=== PATIENT | male | born 1950 | race Caucasian/White ===

== ENCOUNTER → 2022-05-15 12:36 | Outpatient (CLI) | payer OTHER, MEDICARE, SELFPAY ==
--- NOTE | 2022-05-15 | DI.MRI.S_ITS ---
PROCEDURE: MR LUMBAR SPINE WO CON INDICATIONS: SPINAL STENOSIS OF LUMBAR REGION TECHNIQUE: Noncontrast sagittal T1 spin echo and T2 fast echo, sagittal STIR, and T2 fast spin echo through the lumbar spine. In cases with scoliosis, additional coronal T2 fast spin echo may be performed. COMPARISON: CT, L-SPINE WITHOUT CONTRAST, 02/04/2018, 16:20. [facility], MR, L-SPINE WITHOUT CONTRAST, 07/09/2017, 17:20. FINDINGS: Image quality: Excellent. Alignment and Curvature: Posterior fusion is present from L4 through S1. There is 1-2 mm retrolisthesis of L3 on L4 and 1-2 mm anterolisthesis of on S1. Bone Marrow: Marrow is of normal overall signal. Mild reactive endplate changes are present L3-4, L4-5. No acute vertebral body compression fractures. Spinal Cord: Conus medullaris terminates at the L1-2 level. Visualized cord demonstrates normal signal and size. Paraspinous Soft Tissues: No paravertebral masses. Mild to moderate desiccation is present throughout the lumbar spine most severe at L4-5, L5-S1. T11-T12: Mild disc bulge with minimal canal narrowing. Moderate left foraminal narrowing. T12-L1: No disc bulge, spinal stenosis or foraminal narrowing. L1-L2: No disc bulge, spinal stenosis or foraminal narrowing. No interval change. Mild facet and ligamentum flavum hypertrophy. L2-L3: Mild disc bulge with moderate spinal stenosis, slightly progressive. [id number] bilateral foraminal narrowing with facet and ligamentum flavum hypertrophy, progressive compared to 2018. L3-L4: Mild disc bulge with severe spinal stenosis and canal compression, mildly progressive. Moderate left and [id number] right foraminal narrowing is relatively stable compared to 2018. Facet and ligamentum flavum hypertrophy are present. L4-L5: Minimal disc bulge without spinal stenosis, improved compared to prior exam. Qnny-aw-lnwmjoee bilateral foraminal narrowing, slightly progressive compared to 2018. L5-S1: Mild disc bulge without spinal stenosis, improved compared to prior exam. Severe bilateral foraminal narrowing, stable compared to 2018. IMPRESSION: Multilevel degenerative changes with areas of interval progression as noted above. Foraminal narrowing remains most severe at L5-S1 secondary to facet and ligamentum flavum arthropathy. Interval progression of spinal stenosis at L3-4. Dictated by: Radha Odell M.D. on 05/15/2022 at 19:40 Approved by: Radha Odell M.D. on 05/15/2022 at 19:46
== END ==
PROVIDERS: Referring Provider Orthopaedic Surgery Orthopaedic Surgery of the Spine; Visit Provider Orthopaedic Surgery Orthopaedic Surgery of the Spine
DX: M48.061 Spinal stenosis, lumbar region without neurogenic claudication (principal); M48.07 Spinal stenosis, lumbosacral region; M47.817 Spondylosis without myelopathy or radiculopathy, lumbosacral region
CPT/HCPCS: 72148

== ENCOUNTER → 2023-07-02 11:07 | Outpatient (CLI) | payer OTHER, MEDICARE, SELFPAY ==
--- NOTE | 2023-07-02 | DI.MRI.S_ITS ---
PROCEDURE: MR LUMBAR SPINE WO CON INDICATIONS: Spinal stenosis, lumbar region with neurogenic claudication TECHNIQUE: Noncontrast sagittal T1 spin echo and T2 fast echo, sagittal STIR, and T2 fast spin echo through the lumbar spine. In cases with scoliosis, additional coronal T2 fast spin echo may be performed. COMPARISON: [facility], MR, MR LUMBAR SPINE WO CON, 05/15/2022, 13:33. FINDINGS: Image quality: Excellent. Alignment and Curvature: Straightening of the normal lumbar lordosis. Posterior fusion from L4 through S1. Bone Marrow: Multilevel degenerative endplate changes, worse at L4-5. Marrow is otherwise of normal overall signal. No acute vertebral body compression fractures. Spinal Cord: Conus medullaris terminates at the L1-L2 level. Visualized cord demonstrates normal signal and size. Paraspinous Soft Tissues: No paravertebral masses. Left renal cyst is partially visualized. T11-T12: Severe disc height loss and desiccation with degenerative endplate changes. Small posterior disc bulge. Mild central canal stenosis. Moderate left foraminal stenosis. T12-L1: Disc desiccation and minimal posterior disc bulge. Facet arthropathy and thickened ligamentum flavum. No central canal or neural foraminal stenosis. L1-L2: Disc desiccation and small posterior disc bulge. Facet arthropathy and thickening of the ligamentum flavum. No central canal stenosis or neural foraminal stenosis. L2-L3: Disc desiccation and height loss. Diffuse disc bulge. Facet arthropathy and thickening ligamentum flavum. Epidural lipomatosis. Moderate spinal canal stenosis is mildly progressed. Mild bilateral neural foraminal stenosis is stable. L3-L4: Disc desiccation and diffuse disc bulge resulting in severe spinal canal stenosis, similar compared to prior. Facet arthropathy and thickening ligamentum flavum. Epidural lipomatosis. Moderate left and mild right neural foraminal stenosis is stable. L4-L5: Facet arthropathy. No central canal stenosis mild bilateral neural foraminal stenosis. Stable. L5-S1: In no central canal stenosis. Facet arthropathy. Stable moderate right neural foraminal stenosis. No left neural foraminal stenosis. IMPRESSION: Multilevel degenerative changes of the lumbar spine status post L4 through S1 posterior spinal fixation and discectomy. Stable severe central canal stenosis at L3-L4. Mild progression of moderate central canal stenosis at L2-L3. Multilevel neural foraminal stenosis as described above. Is similar compared to prior. Dictated by: Vincenzo Colon M.D. on 07/02/2023 at 12:43 Approved by: Vincenzo Colon M.D. on 07/02/2023 at 12:51
== END ==
PROVIDERS: Referring Provider Physical Medicine & Rehabilitation; Visit Provider Physical Medicine & Rehabilitation
DX: M48.062 Spinal stenosis, lumbar region with neurogenic claudication (principal); M47.816 Spondylosis without myelopathy or radiculopathy, lumbar region; M47.817 Spondylosis without myelopathy or radiculopathy, lumbosacral region
CPT/HCPCS: 72148

== ENCOUNTER → 2023-12-04 08:59 | Outpatient (CLI) | payer OTHER, MEDICARE, SELFPAY | LOC: PHYS 09:03 | PROVIDERS: Family Provider Physical Medicine & Rehabilitation; PCP Physical Medicine & Rehabilitation; Referring Provider Physical Medicine & Rehabilitation; Visit Provider Physical Medicine & Rehabilitation | DX: M54.17 Radiculopathy, lumbosacral region (principal); Z98.1 Arthrodesis status | CPT/HCPCS: 95886; 95910 ==

== ENCOUNTER 2024-02-24 13:20 | Outpatient (CLI) | payer OTHER, MEDICARE, SELFPAY ==
[2024-02-24] VITALS (8 sets, daily range): BP systolic 128–169; BP diastolic 59–87; PULSE 53–74; RESP 15–23; TEMP 36.6; O2SAT 92–96
--- NOTE | 2024-02-24 14:00 | DI.RAD.S_ITS ---
PROCEDURE: PAIN L INTERLAMINAR/CAUDAL INJ INDICATIONS: SPONDYLOSIS COMPARISON: MR, MR LUMBAR SPINE WO CON, 07/02/2023, 11:27. [facility], RF, LUMBAR TRANSFORAMINAL KRISS, 04/22/2023, 10:51. [facility], RF, LUMBAR SPINE INTERIAMINAR, 12/24/2022, 11:50. [facility], CR, XR LUMBAR SPINE 2 OR 3 VIEWS, 11/12/2022, 8:54. FINDINGS: Fluoroscopic spot filming was performed to verify placement of spinal needles at the L5-S1 level(s), as labeled on the films. Appropriate location(s) of the needle tip(s) was confirmed by injection of iodinated contrast. IMPRESSION: L5-S1 needle and contrast placement. Dictated by: Radha Odell M.D. on 02/24/2024 at 17:00 Approved by: Radha Odell M.D. on 02/24/2024 at 17:00
[2024-02-24] MEDS: MIDAZOLAM 2 MG/2 ML VIAL IV (14:46)
[2024-02-24] MEDS: iopamidoL 15 ML VIAL 3 ML INJ (14:52)
[2024-02-24] MEDS: DEXAMETHASONE 10 MG/ML VIAL INJ (14:52)
[2024-02-24] MEDS: BETAMETHASONE 30 MG/5 ML MDV 6 MG INJ (14:52)
[2024-02-24] MEDS: BUPIVACAINE 0.25% (PF) VIAL 2 ML INJ (14:52)
--- NOTE | 2024-02-24 15:06 | PM.PROC.IR.1 ---
Date/Time/Diagnoses Date of procedure: 02/24/24 Time of procedure: 15:07 Pre-procedure diagnosis: 1. HNP WITH RADICULAR FEATURES, 2. MULTILEVEL CENTRAL STENOSIS, Post-procedure diagnosis: same Procedure Notes Procedure: 1. FLUOROSCOPICALLY GUIDED CONTRAST CONTROLLED INTERLAMINAR EPIDURAL STEROID INJECTION - L5/S1 Indications: Morgan is referred for treatment of Bilateral Foraminal Stenosis L>R LE symptoms. Physician: Lakhwinder Hale Total Fluoroscopy time (seconds): 9 Total sedation minutes: 10 Complications: none Procedure in detail & Post-procedure care: FINDINGS Multilevel Central Spinal Stenosis with Nerve Root Compression DESCRIPTION OF PROCEDURE Fluoroscopically guided, contrast-controlled L5/S1 translaminar epidural steroid injection. Following review of allergy and review of potential side effects and complications, including, but not necessarily limited to, infection, allergic reaction, local tissue breakdown, temporary as well as permanent nerve injury, paralysis, stroke and possible , the patient indicated that the patient understood and agreed to proceed. An informed consent document was signed by the patient, witnessed by a nurse, and placed in the patient's chart. Additionally, other treatment options including modalities, medications, and physical therapy were reviewed with the patient. After review of previous anaesthesic history and IV conscious sedation the patient was deemed safe to proceed with today?s procedure with IV conscious sedation as ASA class II designation. Safety time-out was performed to confirm patient ID, procedure to be performed and site of procedure. IV sedation was accomplished with a combination of 2mg of Versed administered by the RN after DO order, titrated to patient comfort during the course of the procedure while the patient remained responsive to all verbal commands. In the prone position, following sterile prep and drape of the lumbar region, the L5/S1 translaminar space was identified fluoroscopically. The skin was anesthetized via a 25-gauge, 1.5-inch needle with 1% lidocaine solution. At this point, a 22-gauge short bevel spinal needle was atraumatically introduced and advanced under fluoroscopic guidance into the region of the L5/S1 translaminar space. Depth was confirmed on lateral view. Radiological data, including multiple fluoroscopic views of the lumbar spine, reveal a spinal needle at the L5/S1 translaminar space. Lateral views then show placement of the needle in the epidural space. Subsequent views show contrast material flowing superiorly and inferiorly in the epidural space. No vascular or intrathecal uptake is observed. At this point, using loss of resistance technique with saline and air, the epidural space was entered. This was confirmed following negative aspiration with injection of approximately 1.5cc of Isovue 200, showing excellent epidural flow without vascular or intrathecal uptake. At this point, 1 cc of 1% lidocaine solution combined with 2cc or 10mg of dexamethasone and 6mg of betamethasone was injected without incident. The patent tolerated the procedure without signs of symptoms of complications prior to transfer to the recovery area for further monitoring. The patient was then transferred to the recovery area where they were observed for an appropriate period of time after the injection. The patient reported a VAS score of 6 prior to the procedure and a post-procedure VAS of 0. POST OP INSTRUCTIONS The patient was provided a Pain Log to continue to record their response to the target-specific procedure prior to follow-up visit with their referring physician. Additionally, specific post-injection care instructions and a contact number to our office were provided if concerns arise regarding possible complications associated with the procedure are suspected.
== END 2024-02-24 15:20 | disposition home or self-care (01) ==
PROVIDERS: Family Provider Physical Medicine & Rehabilitation; Referring Provider Physical Medicine & Rehabilitation; Visit Provider Physical Medicine & Rehabilitation
DX: M51.17 Intervertebral disc disorders with radiculopathy, lumbosacral region (principal); M48.07 Spinal stenosis, lumbosacral region
CPT/HCPCS: 62323; 99152; J0702; J1100; J2250; J3490

== ENCOUNTER 2024-04-22 12:51 | Outpatient (CLI) | payer OTHER, MEDICARE, SELFPAY ==
[2024-04-22] VITALS (9 sets, daily range): BP systolic 130–170; BP diastolic 58–91; PULSE 50–62; RESP 16–21; TEMP 36.6; O2SAT 93–97
--- NOTE | 2024-04-22 13:30 | DI.RAD.S_ITS ---
PROCEDURE: PAIN L/S FACET INJ/BLK 1ST NYA INDICATIONS: Bilateral L2-L3 and L4 medial branch blocks LA COMPARISON: None. FINDINGS: Fluoroscopic spot filming was performed to verify placement of spinal needles at the L2, L3, L4 level(s), as labeled on the films. Appropriate location(s) of the needle tip(s) was confirmed by injection of iodinated contrast. IMPRESSION: L2-4 contrast and needle placement. Dictated by: Radha Odell M.D. on 04/22/2024 at 17:08 Approved by: Radha Odell M.D. on 04/22/2024 at 17:09
[2024-04-22] MEDS: MIDAZOLAM 2 MG/2 ML VIAL 1 MG IV (14:00)
[2024-04-22] MEDS: LIDOCAINE 1% 20 ML 5 ML INJ (14:07)
[2024-04-22] MEDS: iopamidoL 15 ML VIAL 3 ML INJ (14:08)
[2024-04-22] MEDS: BUPIVACAINE 0.5% (PF) 10 ML VIAL 5 ML INJ (14:08)
--- NOTE | 2024-04-22 14:18 | PM.PROC.IR.1 ---
Date/Time/Diagnoses Date of procedure: 04/22/24 Time of procedure: 14:18 Pre-procedure diagnosis: FACET ARTHROPATHY Post-procedure diagnosis: same Procedure Notes Procedure: 1. BILATERAL L2, L3, L4 DIAGNOSTIC MB BLOCKS Indications: Morgan is referred for treatment of Bilateral Axial LBP. Physician: Lakhwinder Hale Total Fluoroscopy time (seconds): 12 Total sedation minutes: 14 Complications: none Procedure in detail & Post-procedure care: DESCRIPTION OF PROCEDURE Fluoroscopically guided, contrast-controlled bilateral L2, L3, L4 medial branch blocks with 0.5cc of 0.5% Marcaine. Following review of allergy and review of potential side effects and complications, including, but not necessarily limited to, infection, allergic reaction, local tissue breakdown, nerve injury, paralysis, stroke and possible , the patient indicated that the patient understood and agreed to proceed. An informed consent document was signed by the patient, witnessed by a nurse, and placed in the patient's chart. After review of previous anaesthesic history and IV conscious sedation the patient was deemed safe to proceed with today's procedure with IV conscious sedation as ASA class II designation. Safety time-out was performed to confirm patient ID, procedure to be performed and site of procedure. IV sedation was accomplished with a combination of 2mg of Versed was administered by the RN after DO order, titrated to patient comfort during the course of the procedure while the patient remained responsive to all verbal commands In the prone position, following sterile prep and drape of the lumbar region, the right L2, L3, L4 anatomical location of the medial branch of the dorsal ramus was identified fluoroscopically. Subsequently an anesthetic skin wheal using 1% lidocaine solution was initiated at each of the anatomical spots. Subsequently then a 22-gauge 3.5-inch spinal needle was atraumatically introduced and advanced under fluoroscopic guidance at each of the corresponding sites at the right L2, L3, L4 MB. After negative aspiration, 0.2cc of Isovue 200 was injected, confirming placement without vascular or intrathecal uptake. Subsequently then 0.5cc of 0.5% Marcaine solution was injected at each of the corresponding sites at the right L2, L3, L4 medial branch locations. The identical procedure was replicated on the left. The patient tolerated the procedure well without signs or symptoms of complications. The patient tolerated the procedure well without signs or symptoms of complications prior to transfer to the recovery area continued monitoring without incident. Post-procedure, the patient was monitored initiating provocative activities to measure the amount of relief from block of the facetogenic pain. The patient reported a VAS of 9 prior to the procedure and a post-procedure VAS of 2. It has been a pleasure to assist in the diagnostic and therapeutic care of your patient. POST OP INSTRUCTIONS The patient was provided with a Pain Log to complete over the next several hours and subsequent days prior to the patient's follow up with the ordering physician. If the patient has director shopper marketing relief to the solution applied, then they may be a candidate for medial branch rhizotomy. The patient is aware, was provided, once again, with a Pain Log and will follow up with the referring physician for review and clinical correlation
== END 2024-04-22 14:55 | disposition home or self-care (01) ==
PROVIDERS: Family Provider Physical Medicine & Rehabilitation; Referring Provider Physical Medicine & Rehabilitation; Visit Provider Physical Medicine & Rehabilitation
DX: M47.816 Spondylosis without myelopathy or radiculopathy, lumbar region (principal)
CPT/HCPCS: 64493; 64494; 99152; J2250

== ENCOUNTER 2024-09-07 14:46 | Outpatient (CLI) | payer OTHER, MEDICARE, SELFPAY ==
[2024-09-07] VITALS (8 sets, daily range): BP systolic 128–166; BP diastolic 59–77; PULSE 50–62; RESP 12–20; TEMP 36.1; O2SAT 94–97
--- NOTE | 2024-09-07 15:30 | DI.RAD.S_ITS ---
PROCEDURE: PAIN SI JOINT INJECTION NYA INDICATIONS: Bilateral sacral joint injection COMPARISON: None. FINDINGS: Fluoroscopic spot filming was performed to verify placement of spinal needles at the right and left sacroiliac joints, as labeled on the films. Appropriate location(s) of the needle tip(s) was confirmed by injection of iodinated contrast. IMPRESSION: Intraoperative fluoroscopy for bilateral sacroiliac joint injection. Dictated by: Estephania Figueroa M.D. on 09/09/2024 at 9:04 Approved by: Estephania Figueroa M.D. on 09/09/2024 at 9:05
[2024-09-07] MEDS: MIDAZOLAM 2 MG/2 ML VIAL IV (16:07)
[2024-09-07] MEDS: BUPIVACAINE 0.5% (PF) 10 ML VIAL 5 ML INJ (16:12)
[2024-09-07] MEDS: BETAMETHASONE 30 MG/5 ML MDV 12 MG INJ (16:13)
[2024-09-07] MEDS: iopamidoL 15 ML VIAL 3 ML INJ (16:13)
--- NOTE | 2024-09-07 16:26 | PM.PROC.IR.1 ---
Date/Time/Diagnoses Date of procedure: 09/07/24 Time of procedure: 16:26 Pre-procedure diagnosis: Sacroiliac joint pain/DJD Post-procedure diagnosis: same Procedure Notes Procedure: Fluoroscopic guided contrast controlled bilateral sacroiliac joint injection Indications: Morgan is referred for treatment of bilateral sacroiliac joint DJD Physician: Lakhwinder Hale Total Fluoroscopy time (seconds): 16 Total sedation minutes: 14 Complications: none Procedure in detail & Post-procedure care: Description of procedure Fluoroscopic guided, contrast controlled bilateral sacroiliac joint injection Following review of allergies and review of potential side effects and complications, including, but not necessarily limited to, infection, allergic reaction, local tissue breakdown, temporary as well as permanent nerve injury, paralysis, stroke and possible , the patient indicated that they understood and agreed to proceed. An informed consent was signed by the patient, witnessed by a nurse, and placed in the patient's chart. Additionally, other treatment options including modalities, medications, and physical therapy were reviewed with the patient. After review of previous anaesthesic history and IV conscious sedation the patient was deemed safe to proceed with today?s procedure with IV conscious sedation as ASA class II designation. Safety time-out was performed to confirm patient ID, procedure to be performed and site of procedure. IV sedation was accomplished with a combination of 2mg Versed were administered by the RN after DO order, titrated to patient comfort during the course of the procedure while the patient remained responsive to all verbal commands In the prone position following sterile prep and drape of the pelvic region, the hyper lucency on in the inferior aspect of the sacroiliac joint was identified fluoroscopically the skin was anesthetized be a 25 gauge 1.5 inch needle with approximately 2cc of 1% lidocaine solution. At this point, a 22 gauge 3 in spinal needle was atraumatically introduced and advanced under fluoroscopic guidance into the inferior aspect of the right sacroiliac joint. Following negative aspiration, approximately 0.3cc of Isovue-300 was injected confirming intra-articular placement without vascular uptake. Radiographic data, including multiple fluoroscopic views of the pelvis, reveals a spinal needle in the sacroiliac joint hyper lucent zone. Subsequent view show flow contrast tear superiorly and inferiorly within the joint capsule without vascular intrathecal uptake. At this point a total of 1cc of 0.5% Marcaine was combined with 1cc of 6mg of betamethasone was injected without incident. Attention was then refocused the left sacroiliac joint where the procedure was replicated. The procedure tolerated the procedure well without signs or symptoms of complications prior to transfer to the recovery area continued monitoring without incident. The patient was then transferred to the recovery area with a bur observed for an appropriate time after the injection. The patient reverted a vas score of 7 prior to the procedure and post-procedure vas of 1. Postop instructions The patient was provided with a pain like to continue to record the patient's response to the target specific procedure prior to the patient's follow-up visit with the referring physician. Additionally, specific post injection care instructions and a contact number to our office were provided if concerns arise regarding the possible complications associated with procedure are suspected.
== END 2024-09-07 16:54 | disposition home or self-care (01) ==
LOC: RAD 14:49
PROVIDERS: Family Provider Physical Medicine & Rehabilitation; Referring Provider Physical Medicine & Rehabilitation; Visit Provider Physical Medicine & Rehabilitation
DX: M53.3 Sacrococcygeal disorders, not elsewhere classified (principal); M46.1 Sacroiliitis, not elsewhere classified
CPT/HCPCS: 27096; 99152; J0702; J2250

== ENCOUNTER → 2025-02-04 08:28 | Outpatient (CLI) | payer MEDICARE, BC, SELFPAY ==
--- NOTE | 2025-02-04 | DI.US.S_ITS ---
PROCEDURE: US ARTERIAL DUPLEX LE RT INDICATIONS: RIGHT HIP PAIN/CLAUDICATION TECHNIQUE: Color and pulse Doppler interrogation was performed of the right lower extremity arterial system, with image documentation. COMPARISON: None. FINDINGS: Common femoral artery: 119 cm/sec, with triphasic flow. Deep femoral artery: 112 cm/sec, with biphasic flow. Proximal superficial femoral artery: 101 cm/sec, with triphasic flow. Mid superficial femoral artery: 119 cm/sec, with triphasic flow. Distal superficial femoral artery: 407 cm/sec, with triphasic flow. Popliteal artery: 77 cm/sec, with triphasic flow. Posterior tibial artery: 114 cm/sec, with triphasic flow. Anterior tibial artery/dorsalis pedis: 39 cm/sec, with biphasic flow. Lockwood-scale imaging description: Severe distal SFA stenosis with marked velocity elevation and a collateral proximal to the stenosis. IMPRESSION: Focal severe distal SFA stenosis, hemodynamically significant. This can result in right calf claudication symptoms. Consider endovascular referral if the patient has a short distance lifestyle limiting calf claudication. Dictated by: Glen Hudson M.D. on 02/04/2025 at 16:56 Approved by: Glen Hudson M.D. on 02/04/2025 at 16:58
== END ==
PROVIDERS: Family Provider Physical Medicine & Rehabilitation; Referring Provider Physical Medicine & Rehabilitation; Visit Provider Physical Medicine & Rehabilitation
DX: I70.201 Unspecified atherosclerosis of native arteries of extremities, right leg (principal); M53.88 Other specified dorsopathies, sacral and sacrococcygeal region
CPT/HCPCS: 93926

== ENCOUNTER → 2025-02-08 09:21 | Outpatient (CLI) | payer MEDICARE, BC, SELFPAY ==
--- NOTE | 2025-02-08 09:22 | DI.CT.S_ITS ---
PROCEDURE: CT PEL WO CON INDICATIONS: SACRAL DYSFUNCTION S/P LUMBAR FUSION TECHNIQUE: Noncontrast 3 mm axial sections acquired through the bony pelvis, with coronal and sagittal reformatting. Additional oblique coronal reformat through the sacrum. For radiation dose reduction, the following was used: automated exposure control, adjustment of mA and/or kV according to patient size. COMPARISON: [facility], CR, XR LUMBAR SPINE 2 OR 3 VIEWS, 11/12/2022, 8:54. [facility], MR, MR LUMBAR SPINE WO CON, 07/02/2023, 11:27. FINDINGS: Image quality: Excellent. Bones: No acute osseous fracture or dislocation. Postsurgical changes are seen from prior posterior fixation at L4 through S1 with bilateral pedicle screws and interbody rods as well as disc spacers. Hardware components are in stable positions without signs of loosening. No hardware fracture is seen. Mild posterior subluxation at the sacrococcygeal junction is likely congenital or secondary to remote prior trauma. Wwsl-[id number] degenerative changes at the sacroiliac joints bilaterally. No suspicious osseous lesion. Mild degenerative changes in the hips with lateral acetabular spurring. Soft tissues: No presacral edema. The articular cartilages, ligaments, and tendons are not well evaluated multiple colonic diverticula. There is fat stranding surrounding a diverticulum at the sigmoid colon suspicious for acute diverticulitis. No fluid collection or pneumoperitoneum is seen. No signs of bowel obstruction. Aortic atherosclerotic calcifications are present. 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 IMPRESSION: 1. Colonic diverticulosis with findings suspicious for acute uncomplicated sigmoid diverticulitis. 2. Postsurgical changes at L4 through S1. No acute hardware complication or acute osseous abnormality is seen. 3. Poes-at-amuaaxze bilateral sacroiliac joint osteoarthrosis. 4. Small fat containing left inguinal hernia. Findings were communicated to Skye of the on-call provider's office by telephone on 02/08/2025 at 4:20 PM. Approved by: Ryan Prakash M.D. on 02/08/2025 at 16:22
== END ==
PROVIDERS: Family Provider Physical Medicine & Rehabilitation; Referring Provider Neurological Surgery; Visit Provider Neurological Surgery
DX: K57.30 Diverticulosis of large intestine without perforation or abscess without bleeding (principal); M19.09 Primary osteoarthritis, other specified site; M53.3 Sacrococcygeal disorders, not elsewhere classified; K46.9 Unspecified abdominal hernia without obstruction or gangrene; I70.0 Atherosclerosis of aorta; Z98.1 Arthrodesis status
CPT/HCPCS: 72192

== ENCOUNTER 2025-02-15 12:09 | Outpatient (CLI) | payer BC, MEDICARE, SELFPAY ==
[2025-02-15] VITALS (9 sets, daily range): BP systolic 122–148; BP diastolic 55–79; PULSE 49–67; RESP 11–19; TEMP 36.2; O2SAT 93–99
[2025-02-15] MEDS: MIDAZOLAM 2 MG/2 ML VIAL IV (13:48)
[2025-02-15] MEDS: iopamidoL 15 ML VIAL 3 ML INJ (13:57)
[2025-02-15] MEDS: BETAMETHASONE 30 MG/5 ML MDV 12 MG INJ (13:57)
[2025-02-15] MEDS: BETAMETHASONE 30 MG/5 ML MDV 6 MG INJ (13:59)
[2025-02-15] MEDS: BUPIVACAINE 0.5% (PF) 10 ML VIAL INJ (14:01)
--- NOTE | 2025-02-15 14:06 | PM.PROC.IR.1 ---
Date/Time/Diagnoses Date of procedure: 02/15/25 Time of procedure: 14:06 Pre-procedure diagnosis: Sacroiliac joint pain/DJD Post-procedure diagnosis: same Procedure Notes Procedure: Fluoroscopic guided contrast controlled bilateral sacroiliac joint injection Indications: Morgan is referred for treatment of bilateral sacroiliac joint DJD Physician: Lakhwinder Hale Total Fluoroscopy time (seconds): 11 Total sedation minutes: 16 Complications: none Procedure in detail & Post-procedure care: Description of procedure Fluoroscopic guided, contrast controlled bilateral sacroiliac joint injection Following review of allergies and review of potential side effects and complications, including, but not necessarily limited to, infection, allergic reaction, local tissue breakdown, temporary as well as permanent nerve injury, paralysis, stroke and possible , the patient indicated that they understood and agreed to proceed. An informed consent was signed by the patient, witnessed by a nurse, and placed in the patient's chart. Additionally, other treatment options including modalities, medications, and physical therapy were reviewed with the patient. After review of previous anaesthesic history and IV conscious sedation the patient was deemed safe to proceed with today?s procedure with IV conscious sedation as ASA class II designation. Safety time-out was performed to confirm patient ID, procedure to be performed and site of procedure. IV sedation was accomplished with a combination of 2mg Versed were administered by the RN after DO order, titrated to patient comfort during the course of the procedure while the patient remained responsive to all verbal commands In the prone position following sterile prep and drape of the pelvic region, the hyper lucency on in the inferior aspect of the sacroiliac joint was identified fluoroscopically the skin was anesthetized be a 25 gauge 1.5 inch needle with approximately 2cc of 1% lidocaine solution. At this point, a 22 gauge 3 in spinal needle was atraumatically introduced and advanced under fluoroscopic guidance into the inferior aspect of the right sacroiliac joint. Following negative aspiration, approximately 0.3cc of Isovue-300 was injected confirming intra-articular placement without vascular uptake. Radiographic data, including multiple fluoroscopic views of the pelvis, reveals a spinal needle in the sacroiliac joint hyper lucent zone. Subsequent view show flow contrast tear superiorly and inferiorly within the joint capsule without vascular intrathecal uptake. At this point a total of 1cc of 0.5% Marcaine was combined with 1cc of 6mg of betamethasone was injected without incident. Attention was then refocused the left sacroiliac joint where the procedure was replicated. The procedure tolerated the procedure well without signs or symptoms of complications prior to transfer to the recovery area continued monitoring without incident. The patient was then transferred to the recovery area with a bur observed for an appropriate time after the injection. The patient reverted a vas score of 7 prior to the procedure and post-procedure vas of 1. Postop instructions The patient was provided with a pain like to continue to record the patient's response to the target specific procedure prior to the patient's follow-up visit with the referring physician. Additionally, specific post injection care instructions and a contact number to our office were provided if concerns arise regarding the possible complications associated with procedure are suspected.
== END 2025-02-15 14:23 | disposition home or self-care (01) ==
LOC: RAD 12:13
PROVIDERS: Family Provider Physical Medicine & Rehabilitation; Referring Provider Physical Medicine & Rehabilitation; Visit Provider Physical Medicine & Rehabilitation
DX: M46.1 Sacroiliitis, not elsewhere classified (principal); M53.3 Sacrococcygeal disorders, not elsewhere classified
CPT/HCPCS: 27096; 99152; J0702; J2250

== ENCOUNTER → 2025-05-03 10:12 | Outpatient (CLI) | payer BC, MEDICARE, SELFPAY ==
--- NOTE | 2025-05-03 10:17 | DI.RAD.S_ITS ---
PROCEDURE: XR FOOT RT MIN 3V INDICATIONS: Pain in right foot TECHNIQUE: 3 views of the foot were acquired. COMPARISON: None. FINDINGS: Bones: Hammertoe deformities 1st through 5th digits noted. Joints: Severe 1st MTP and mild 2nd through 5th interphalangeal degeneration appreciated Soft tissues: A 2.2 cm ossification is seen in the dorsal soft tissues overlying the 1st metatarsal. IMPRESSION: Chronic findings as described Dictated by: Giovanni Min M.D. on 05/04/2025 at 12:19 Approved by: Giovanni Min M.D. on 05/04/2025 at 12:20
== END ==
LOC: RAD 10:16
PROVIDERS: Family Provider Physical Medicine & Rehabilitation; Referring Provider Podiatrist Foot & Ankle Surgery; Visit Provider Podiatrist Foot & Ankle Surgery
DX: M19.071 Primary osteoarthritis, right ankle and foot (principal); M20.41 Other hammer toe(s) (acquired), right foot; M79.671 Pain in right foot
CPT/HCPCS: 73630

== ENCOUNTER 2025-06-09 09:34 | Outpatient (CLI) | payer BC, MEDICARE, SELFPAY ==
[2025-06-09] VITALS (8 sets, daily range): BP systolic 127–168; BP diastolic 57–78; PULSE 52–74; RESP 11–22; TEMP 36.2; O2SAT 92–99
[2025-06-09] MEDS: MIDAZOLAM 2 MG/2 ML VIAL IV (11:04)
[2025-06-09] MEDS: BETAMETHASONE 30 MG/5 ML MDV 12 MG INJ (11:08)
[2025-06-09] MEDS: BUPIVACAINE 0.5% (PF) 10 ML VIAL 5 ML INJ (11:09)
[2025-06-09] MEDS: BETAMETHASONE 30 MG/5 ML MDV 6 MG INJ (11:10)
--- NOTE | 2025-06-09 11:24 | PM.PROC.IR.1 ---
Date/Time/Diagnoses Date of procedure: 06/09/25 Time of procedure: 11:24 Pre-procedure diagnosis: Sacroiliac joint pain/DJD Post-procedure diagnosis: same Procedure Notes Procedure: Fluoroscopic guided contrast controlled bilateral sacroiliac joint injection Indications: Morgan is referred for treatment of bilateral sacroiliac joint DJD Physician: Lakhwinder Hale Total Fluoroscopy time (seconds): 13 Total sedation minutes: 15 Complications: none Procedure in detail & Post-procedure care: Description of procedure Fluoroscopic guided, contrast controlled bilateral sacroiliac joint injection Following review of allergies and review of potential side effects and complications, including, but not necessarily limited to, infection, allergic reaction, local tissue breakdown, temporary as well as permanent nerve injury, paralysis, stroke and possible , the patient indicated that they understood and agreed to proceed. An informed consent was signed by the patient, witnessed by a nurse, and placed in the patient's chart. Additionally, other treatment options including modalities, medications, and physical therapy were reviewed with the patient. After review of previous anaesthesic history and IV conscious sedation the patient was deemed safe to proceed with today?s procedure with IV conscious sedation as ASA class II designation. Safety time-out was performed to confirm patient ID, procedure to be performed and site of procedure. IV sedation was accomplished with a combination of 2mg Versed were administered by the RN after DO order, titrated to patient comfort during the course of the procedure while the patient remained responsive to all verbal commands In the prone position following sterile prep and drape of the pelvic region, the hyper lucency on in the inferior aspect of the sacroiliac joint was identified fluoroscopically the skin was anesthetized be a 25 gauge 1.5 inch needle with approximately 2cc of 1% lidocaine solution. At this point, a 22 gauge 3 in spinal needle was atraumatically introduced and advanced under fluoroscopic guidance into the inferior aspect of the right sacroiliac joint. Following negative aspiration, approximately 0.3cc of Isovue-300 was injected confirming intra-articular placement without vascular uptake. Radiographic data, including multiple fluoroscopic views of the pelvis, reveals a spinal needle in the sacroiliac joint hyper lucent zone. Subsequent view show flow contrast tear superiorly and inferiorly within the joint capsule without vascular intrathecal uptake. At this point a total of 1cc of 0.5% Marcaine was combined with 1cc of 6mg of betamethasone was injected without incident. Attention was then refocused the left sacroiliac joint where the procedure was replicated. The procedure tolerated the procedure well without signs or symptoms of complications prior to transfer to the recovery area continued monitoring without incident. The patient was then transferred to the recovery area with a bur observed for an appropriate time after the injection. The patient reverted a vas score of 7 prior to the procedure and post-procedure vas of 1. Postop instructions The patient was provided with a pain like to continue to record the patient's response to the target specific procedure prior to the patient's follow-up visit with the referring physician. Additionally, specific post injection care instructions and a contact number to our office were provided if concerns arise regarding the possible complications associated with procedure are suspected.
== END 2025-06-09 11:55 | disposition home or self-care (01) ==
PROVIDERS: Referring Provider Physical Medicine & Rehabilitation; Visit Provider Physical Medicine & Rehabilitation
DX: M46.1 Sacroiliitis, not elsewhere classified (principal); M53.3 Sacrococcygeal disorders, not elsewhere classified
CPT/HCPCS: 27096; 99152; J0702; J2250

== ENCOUNTER → 2025-07-11 13:35 | Outpatient (CLI) | payer BC, MEDICARE, SELFPAY ==
--- NOTE | 2025-07-15 19:12 | DI.NM.S_ITS ---
DATE OF SERVICE: 07/15/2025 PHARMACOLOGICAL PERFUSION STUDY INDICATIONS: The patient has known history of bypass surgery in 2019, hypertension, hyperlipidemia, peripheral arterial disease, tobacco abuse, being planned to have back surgery. Perfusion study is being done for risk of stratification. RADIOPHARMACEUTICAL: 25 millicurie technetium-99m Myoview IV was injected at stress and 25 millicurie technetium-99m Myoview IV was injected at rest. CARDIAC STRESS: The patient underwent IV Lexiscan perfusion study under the supervision of an attending staff using standard intravenous Lexiscan as per protocol. Baseline rhythm was sinus with first-degree AV block with left anterior fascicular block with mild sinus bradycardia. During Lexiscan, no convincing ischemic changes or significant arrhythmias or milind arrhythmias seen. No chest pain. Minimal dyspnea. No aminophylline needed. The patient remained hemodynamically stable. Blood pressure 120/70 at rest. RAW DATA: There is increased subdiaphragmatic activity. GATED STUDY: Stress LV ejection fraction 66% without any significant wall motion abnormalities. Resting end-diastolic volume 114 mL. TID ratio 1.19, which is within normal limits. Lung/heart ratio 0.32, which is within normal limits. MYOCARDIAL PERFUSION SCAN: Stress supine and resting supine images were compared to each other. There is no stress prone images. There appears to be moderate size, moderate to severely decreased reversible perfusion defect in the base to mid inferior wall and mildly decreased perfusion in the distal inferior wall. There is a mildly decreased fixed perfusion defect of [____] don-infarct reversibility. CONCLUSION: This is an abnormal myocardial perfusion study with moderate size, moderate to severe reversible ischemia of base to mid inferior wall and mild reversible ischemia of distal inferior wall. Mild anterior apical infarction with mild don-infarct ischemia around the anterior apex. Summed stress score nine and sum rest score two with summed difference score seven. Preserved LV function. No chest pain. Correlate clinically. Discussed the findings with Dr. Shepherd. Morgan Flor - PAN/alonzo/BAO doc#: [id number]/job#: [id number] dd: 07/15/2025 16:31:00 dt: 07/15/2025 16:37:00 DICTATING MD/COPIES TO: Kory Burrell MD COPIES MNE: MARILUZ;
== END ==
LOC: NUCM 13:37
PROVIDERS: Referring Provider Internal Medicine Cardiovascular Disease; Visit Provider Internal Medicine Cardiovascular Disease
DX: I25.10 Atherosclerotic heart disease of native coronary artery without angina pectoris (principal); R94.39 Abnormal result of other cardiovascular function study
CPT/HCPCS: 78452; 93017; A9502; J2785

== ENCOUNTER → 2025-07-15 12:17 | Outpatient (CLI) | payer BC, MEDICARE, SELFPAY ==
--- NOTE | 2025-07-15 12:19 | DI.ECHO.S_ITS ---
[facility] : : [address] : : [place] : : [id number] : : Phone: [phone] Echocardiogram Report + + :Name: MINE HYATT Study Date: 07/15/2025 Height: 72 in : :Hospital ReadingLocation: Weight: 234 lb : : Gender: Male BSA: 2.3 m2 : :: 1950 Age: 75 yrs BP: 134/71 mmHg: :Reason For Study: CAD WITH ANGINA PECTORIS : :Ordering Physician: CONY, : :JENN Valle Performed By: Livier Gibson : :Referring: JENN SHEPHERD : + + Interpretation Summary The patient was in sinus bradycardia with heart rates between 47-66 bpm during the exam. The ejection fraction is estimated to be 60-65%. Normal diastolic function. The right ventricle is mildly dilated. The right ventricular systolic function is normal. There is mild aortic stenosis. Pulmonary artery pressures cannot be estimated because of the lack of a measurable TR jet velocity but the IVC suggests a CVP of around 3 mmHg. Procedure: A two-dimensional transthoracic echocardiogram with color flow and Doppler was performed. The study quality was technically adequate. There is no prior echocardiogram noted for this patient. The patient was in sinus bradycardia with heart rates between 47-66 bpm during the exam. Left Ventricle: The left ventricle is normal in size. There is normal left ventricular wall thickness. The ejection fraction is estimated to be 60-65%. Septal motion is consistent with conduction abnormality. Normal diastolic function. Right Ventricle: The right ventricle is mildly dilated. The right ventricular systolic function is normal. Atria: The left atrial size is normal. Right atrial size is normal. There is no Doppler evidence for an interatrial shunt. Mitral Valve: The mitral valve leaflets appear to open well. There is no mitral regurgitation noted. Aortic Valve: The aortic valve is moderately calcified. The peak aortic velocity is 2.2 m/sec. The aortic valve mean gradient is 11 mmHg. The calculated aortic valve area is 1.9 cm2. There is mild aortic stenosis. There is trace aortic regurgitation. Tricuspid Valve: The tricuspid valve leaflets are thin and pliable. There is mild tricuspid regurgitation. Pulmonary artery pressures cannot be estimated because of the lack of a measurable TR jet velocity but the IVC suggests a CVP of around 3 mmHg. Pulmonic Valve: The pulmonic valve leaflets are thin and pliable; valve motion is normal. There is mild to moderate pulmonic regurgitation. Great Vessels: The aortic root is normal size. The dimensions of the ascending aorta are normal. The IVC is of normal diameter and collapses greater than 50% with a sniff. This suggests a low right atrial pressure of 3 mm Hg. Pericardium/ Pleura There is no pericardial effusion. There is no pleural effusion. MMode/2D Measurements & Calculations LVIDd: 5.4 cm LVOT diam: 2.3 cm LVIDs: 3.9 cm Ao root diam: 3.7 cm FS: 29.0 % asc Aorta Diam: 3.5 cm IVSd: 1.0 cm Ao Arch Diam (Prox Trans): 2.6 cm LVPWd: 1.00 cm LV arredondo. diameter/BSA (cm/m^2): 2.4 LV sys. diameter/BSA (cm/m^2): 1.7 LA A2 area: 23.1 cm2 RA long axis: 4.7 cm LA A4 area: 21.1 cm2 RA area: 18.3 cm2 LA length (vol): 5.9 cm RA vol: 61.0 ml LA vol: 69.4 ml RA : 26.8 ml/m2 LA vol index: 30.5 ml/m2 IVC diam: 1.9 cm RVD1 (basal): 4.6 cm TAPSE: 2.5 cm Doppler Measurements & Calculations Ao V2 max: 218.8 cm/sec LVOT Max Pedro: 99.5 cm/sec Ao V2 mean: 145.3 cm/sec LV V1 max P.0 mmHg Ao max P.6 mmHg LV V1 VTI: 21.9 cm Ao mean P.5 mmHg FELISHA(I,D): 1.9 cm2 Ao V2 VTI: 47.4 cm FELISHA(V,D): 1.9 cm2 sev ratio: 0.46 FELISHA indexed to BSA (cm^2/m^2): 0.85 MV E max pedro: 85.9 cm/sec TR max pedro: 279.4 cm/sec MV A max pedro: 79.8 cm/sec TR max P.2 mmHg MV E/A: 1.1 PA V2 max: 114.9 cm/sec Med Peak E' Pedro: 6.5 cm/sec PA V2 mean: 73.1 cm/sec E/E' med: 13.3 PA mean P.4 mmHg Lat Peak E' Pedro: 10.1 cm/sec PA pr(Accel): 35.8 mmHg E/E' lat: 8.5 E/e' average: 10.9 MV dec time: 0.28 sec MVA(VTI): 2.3 cm2 MV V2 mean: 50.7 cm/sec SV(LVOT): 91.3 ml MV mean P.4 mmHg MV V2 VTI: 39.7 cm Reading Physician:09:40 AM
== END ==
PROVIDERS: Referring Provider Internal Medicine Cardiovascular Disease; Visit Provider Internal Medicine Cardiovascular Disease
DX: I08.2 Rheumatic disorders of both aortic and tricuspid valves (principal); I25.10 Atherosclerotic heart disease of native coronary artery without angina pectoris
CPT/HCPCS: 93306